=== PATIENT | female | born 1950 | race African-American/Black ===

== ENCOUNTER 2021-05-21 12:51 | Inpatient (IN) | payer MEDICARE, MEDICAID ==
[~2021-05-21] VITALS: Ht 165.1 cm; Wt 94.3 kg
[2021-05-21] MEDS ORDERED: DEXAMETHASONE 4MG/ML 1ML VIAL IV ONE (14:45)
[2021-05-21 15:06] LABS: HEMATOCRIT. 36.1 % (36.0-48.0); HEMOGLOBIN. 12.6 g/dL (12.0-16.0); MEAN CORPUSCULAR HEMOGLOBIN 31.3 pg (28.0-32.0); MEAN CORPUSCULAR VOLUME 89.4 fL (81.0-99.0); MEAN PLATELET VOLUME 11.8 fl (7.4-10.4); PLATELET 64 x1000/uL (130-400); RED BLOOD CELL COUNT 4.03 mill/uL (4.2-5.4); RED CELL DISTRIBUTION WIDTH 13.6 % (11.6-14.6)
[2021-05-21 15:28] LABS: BG BASE EXCESS -4.1 mmol/L (-2.0-2.0); BG CARBOXYHEMOGLOBIN 0.3 % (0.5-1.5); BG DEOXYHEMOGLOBIN 7.4 % (0.0-5.0); BG FRACTION INSPIRED OXYGEN 99.8; BG HCO3 ACT 19.7 mmol/L (22.0-26.0); BG METHEMOGLOBIN 0.2 % (0.0-1.5); BG OXYGEN SATURATION 92.6 % (92.0-98.5); BG OXYHEMOGLOBIN 92.1 % (94.0-97.0); BG PH 7.407 (7.350-7.450); BG PO2 69.4 mmHg (75.0-100.0); BG SAMPLE SITE RIGHT RADIAL; BG TOTAL HEMOGLOBIN 12.7 g/dL (12.0-18.0); BG VENT MODE MASK - NRB
[2021-05-21 16:21] LABS: PLATELET ESTIMATE DECREASED
[2021-05-21] MEDS ORDERED: PIPERACILLIN/TAZ 3.375G PREMIX 50 ML IV ONE (16:45)
[2021-05-21] MEDS ORDERED: VANCOMYCIN 1 G PREMIX 200 ML IV ONE (16:45)
[2021-05-21] MEDS ORDERED: POTASSIUM CHLORIDE INJ 40 MEQ in DEXT 5% WATER 250 ML IV ONE (18:45)
[2021-05-21] MEDS ORDERED: SODIUM CHLORIDE 0.9% 1,000 ML IV ONE (18:45)
[2021-05-22] VITALS (16 sets, daily range): BP systolic 120–214; BP diastolic 71–100
[2021-05-22] MEDS ORDERED: PIPERACILLIN/TAZOBACTAM 3.375 G in DEXTROSE 5% WATER 50 ML IV SCH (10:00)
[2021-05-22] MEDS ORDERED: INSULIN GLARGINE UD 100 UNITS/ML SYR SUBCUT SCH ×2 (10:00→11:00)
[2021-05-22] MEDS ORDERED: ACETAMINOPHEN 325MG TABLET PO PRN (10:00)
[2021-05-22] MEDS ORDERED: POTASSIUM CHLORIDE 20MEQ TABLET SR PO SCH (10:00)
[2021-05-22] MEDS: DEXAMETHASONE 10 MG/ML VIAL IV SCH (10:26)
[2021-05-22] MEDS: INSULIN LISPRO 100 UNITS/ML SUBCUT SCH ×3 (11:23→20:10)
[2021-05-22] MEDS: BLOOD SUGAR DIAGNOSTIC STRIP TEST SCH ×3 (11:45→20:05)
[2021-05-22] MEDS: ONDANSETRON HCL 4MG/2ML INJ IV PRN ×2 (11:47→18:33)
[2021-05-22] MEDS ORDERED: PIPERACILLIN/TAZOBACTAM 2.25G in DEXTROSE 5% WATER 50ML IV SCH (12:00)
[2021-05-22] MEDS: SODIUM CHLORIDE 0.45% 1,000 ML IV SCH (14:44)
[2021-05-22] MEDS ORDERED: HYDR25TA MT (17:30)
[2021-05-22] MEDS ORDERED: HYDR-4009 MT (17:32)
[2021-05-22] MEDS ORDERED: METO-385 MT (17:34)
[2021-05-22] MEDS ORDERED: LOSA100T32 MT (17:34)
[2021-05-22] MEDS ORDERED: OMEP20CA14 MT (17:35)
[2021-05-22] MEDS ORDERED: AMLO10TA80 MT (17:36)
[2021-05-22] MEDS: PIPERACILLIN/TAZOBACTAM 2.25G in DEXTROSE 5% WATER 50ML IV SCH ×2 (17:58→23:02)
[2021-05-22] MEDS: METOCLOPRAMIDE HCL 10MG/2ML VIAL IV SCH ×2 (17:58→23:02)
[2021-05-22] MEDS: CLONIDINE 0.1MG TABLET PO PRN (18:28)
[2021-05-22] MEDS: NICOTINE 14MG PATCH TD SCH (20:10)
[2021-05-22] MEDS: ALBUTEROL 6.7GM HFA INHALER ORI SCH (20:39)
[2021-05-23] VITALS (51 sets, daily range): BP systolic 88–198; BP diastolic 45–104
[2021-05-23] MEDS: ALBUTEROL 6.7GM HFA INHALER ORI SCH ×7 (04:20→21:37)
[2021-05-23 05:21] LABS: BASOPHILS % 0.3 % (0.0-2.0); HEMATOCRIT. 35.5 % (36.0-48.0); HEMOGLOBIN. 12.3 g/dL (12.0-16.0); LYMPHOCYTES % 8.7 % (20.0-50.0); MEAN CORPUSCULAR HEMOGLOBIN 30.5 pg (28.0-32.0); MEAN CORPUSCULAR VOLUME 87.9 fL (81.0-99.0); MEAN PLATELET VOLUME 9.7 fl (7.4-10.4); MONOCYTES % 5.7 % (2.0-8.0); NEUTROPHILS % 85.3 % (40.0-76.0); PLATELET 76 x1000/uL (130-400); RED BLOOD CELL COUNT 4.03 mill/uL (4.2-5.4); RED CELL DISTRIBUTION WIDTH 14.1 % (11.6-14.6)
[2021-05-23] MEDS: BLOOD SUGAR DIAGNOSTIC STRIP TEST SCH ×4 (06:14→20:57)
[2021-05-23] MEDS: PIPERACILLIN/TAZOBACTAM 2.25G in DEXTROSE 5% WATER 50ML IV SCH ×3 (06:14→19:04)
[2021-05-23] MEDS: METOCLOPRAMIDE HCL 10MG/2ML VIAL IV SCH ×3 (06:14→19:03)
[2021-05-23] MEDS: SODIUM CHLORIDE 0.45% 1,000 ML IV SCH (06:19)
[2021-05-23] MEDS: INSULIN LISPRO 100 UNITS/ML SUBCUT SCH ×4 (07:00→21:04)
[2021-05-23] MEDS: DEXAMETHASONE 10 MG/ML VIAL IV SCH (10:10)
[2021-05-23] MEDS: METHADONE HCL 10MG TABLET PO SCH (10:12)
[2021-05-23] MEDS: AMLODIPINE 10MG TABLET PO SCH (10:12)
[2021-05-23] MEDS: DEXTROSE 5% WATER 1,000 ML IV SCH (10:13)
[2021-05-23] MEDS: NICOTINE 14MG PATCH TD SCH (10:13)
[2021-05-23 16:39] LABS: HEMATOCRIT 34.2 % (36.0-48.0); HEMOGLOBIN 11.8 g/dL (12.0-16.0)
[2021-05-23] MEDS: PANTOPRAZOLE SODIUM 40 MG/VIAL IV SCH (19:03)
[2021-05-23] MEDS: CLONIDINE 0.1MG TABLET PO PRN (21:04)
[2021-05-24] VITALS (42 sets, daily range): BP systolic 136–190; BP diastolic 68–111
[2021-05-24] MEDS: METOCLOPRAMIDE HCL 10MG/2ML VIAL IV SCH ×4 (00:01→18:08)
[2021-05-24] MEDS: PIPERACILLIN/TAZOBACTAM 2.25G in DEXTROSE 5% WATER 50ML IV SCH ×4 (00:01→18:08)
[2021-05-24] MEDS: ALBUTEROL 6.7GM HFA INHALER ORI SCH (00:29)
[2021-05-24] MEDS: BLOOD SUGAR DIAGNOSTIC STRIP TEST SCH ×4 (05:41→21:09)
[2021-05-24 05:55] LABS: HEPATITIS B SURFACE ANTIGEN NEGATIVE
[2021-05-24] MEDS: DEXTROSE 5% WATER 1,000 ML IV SCH (06:06)
[2021-05-24] MEDS: INSULIN LISPRO 100 UNITS/ML SUBCUT SCH ×4 (06:06→21:13)
[2021-05-24 06:24] LABS: HEPATITIS A AB IGM NEGATIVE (NEGATIVE)
[2021-05-24] MEDS: PANTOPRAZOLE SODIUM 40 MG/VIAL IV SCH ×2 (08:58→18:08)
[2021-05-24] MEDS: DEXAMETHASONE 10 MG/ML VIAL IV SCH (08:58)
[2021-05-24] MEDS: METHADONE HCL 10MG TABLET PO SCH (08:58)
[2021-05-24] MEDS: AMLODIPINE 10MG TABLET PO SCH (08:58)
[2021-05-24] MEDS: NICOTINE 14MG PATCH TD SCH (08:59)
[2021-05-24 12:43] LABS: HEMATOCRIT. 38.4 % (36.0-48.0); HEMOGLOBIN. 12.8 g/dL (12.0-16.0); MEAN CORPUSCULAR HEMOGLOBIN 30.5 pg (28.0-32.0); MEAN CORPUSCULAR VOLUME 91.5 fL (81.0-99.0); PLATELET 77 x1000/uL (130-400); RED BLOOD CELL COUNT 4.19 mill/uL (4.2-5.4)
[2021-05-24 13:52] LABS: PLATELET ESTIMATE DECREASED
[2021-05-24 14:22] LABS: VITAMIN B12 SERUM 1595 pg/mL (211-911)
[2021-05-24] MEDS: IVERMECTIN 3 MG TABLET PO SCH (15:31)
[2021-05-24] MEDS: CLONIDINE 0.1MG TABLET PO PRN (22:12)
[2021-05-25] VITALS (82 sets, daily range): BP systolic 81–200; BP diastolic 52–112
[2021-05-25] MEDS: METOCLOPRAMIDE HCL 10MG/2ML VIAL IV SCH ×4 (00:04→17:29)
[2021-05-25] MEDS: PIPERACILLIN/TAZOBACTAM 2.25G in DEXTROSE 5% WATER 50ML IV SCH ×4 (00:04→17:29)
[2021-05-25] MEDS: ALBUTEROL 6.7GM HFA INHALER ORI SCH ×4 (01:01→19:00)
[2021-05-25 05:41] LABS: HEMATOCRIT. 39.4 % (36.0-48.0); HEMOGLOBIN. 13.4 g/dL (12.0-16.0); MEAN CORPUSCULAR HEMOGLOBIN 29.8 pg (28.0-32.0); MEAN CORPUSCULAR VOLUME 87.5 fL (81.0-99.0); MEAN PLATELET VOLUME 9.7 fl (7.4-10.4); PLATELET 90 x1000/uL (130-400); RED CELL DISTRIBUTION WIDTH 13.7 % (11.6-14.6)
[2021-05-25] MEDS: BLOOD SUGAR DIAGNOSTIC STRIP TEST SCH ×4 (05:48→21:02)
[2021-05-25] MEDS: INSULIN LISPRO 100 UNITS/ML SUBCUT SCH ×4 (05:48→21:02)
[2021-05-25 07:41] LABS: PLATELET ESTIMATE DECREASED
[2021-05-25] MEDS ORDERED: SODIUM CHLORIDE 0.9% 10ML VIAL ONE (08:06)
[2021-05-25] MEDS ORDERED: ETOMIDATE 2MG/ML 10ML VIAL IV ONE (08:06)
[2021-05-25] MEDS ORDERED: VECURONIUM BROMIDE 10 MG/VIAL IV ONE (08:06)
[2021-05-25] MEDS: FENTANYL CITRATE/PF 2,500 MCG in SODIUM CHLORIDE 0.9% 200 ML IV PRN (08:14)
[2021-05-25] MEDS: MIDAZOLAM HCL 100 MG in SODIUM CHLORIDE 0.9% 80 ML IV PRN ×2 (08:14→21:22)
[2021-05-25] MEDS ORDERED: DILTIAZEM HCL 5MG/ML 5ML VIAL IV NR (09:15)
[2021-05-25 09:44] LABS: BG BASE EXCESS -12.3 mmol/L (-2.0-2.0); BG CARBOXYHEMOGLOBIN 0.6 % (0.5-1.5); BG DEOXYHEMOGLOBIN 3.1 % (0.0-5.0); BG HCO3 ACT 18.3 mmol/L (22.0-26.0); BG METHEMOGLOBIN 0.5 % (0.0-1.5); BG OXYGEN SATURATION 96.9 % (92.0-98.5); BG OXYHEMOGLOBIN 95.8 % (94.0-97.0); BG PCO2 61.3 mmHg (35.0-45.0); BG PH 7.092 (7.350-7.450); BG PO2 120.6 mmHg (75.0-100.0); BG SAMPLE SITE RIGHT RADIAL; BG TOTAL HEMOGLOBIN 15.3 g/dL (12.0-18.0); BG VENT MODE VENT - AC
[2021-05-25] MEDS ORDERED: DILTIAZEM HCL 60MG TABLET PO SCH (09:45)
[2021-05-25] MEDS: NICOTINE 14MG PATCH TD SCH (09:56)
[2021-05-25] MEDS: PANTOPRAZOLE SODIUM 40 MG/VIAL IV SCH ×2 (09:56→16:00)
[2021-05-25] MEDS: DEXAMETHASONE 10 MG/ML VIAL IV SCH (09:56)
[2021-05-25] MEDS: METHADONE HCL 10MG TABLET PO SCH (10:56)
[2021-05-25] MEDS: DEXTROSE 5% WATER 1,000 ML IV SCH (10:56)
[2021-05-25] MEDS ORDERED: DILTIAZEM HCL 5MG/ML 5ML VIAL IV PRN (12:00)
[2021-05-25] MEDS ORDERED: POTASSIUM CHLORIDE INJ 40 MEQ in DEXT 5% WATER 500 ML IV SCH (12:00)
[2021-05-25] MEDS: IVERMECTIN 3 MG TABLET PO SCH (12:15)
[2021-05-25 12:31] LABS: BG BASE EXCESS -12.2 mmol/L (-2.0-2.0); BG CARBOXYHEMOGLOBIN 0.2 % (0.5-1.5); BG DEOXYHEMOGLOBIN 8.1 % (0.0-5.0); BG FRACTION INSPIRED OXYGEN 100; BG HCO3 ACT 16.5 mmol/L (22.0-26.0); BG METHEMOGLOBIN 0.3 % (0.0-1.5); BG OXYGEN SATURATION 91.9 % (92.0-98.5); BG OXYHEMOGLOBIN 91.4 % (94.0-97.0); BG PCO2 48.3 mmHg (35.0-45.0); BG PH 7.151 (7.350-7.450); BG PO2 77.4 mmHg (75.0-100.0); BG SAMPLE SITE LEFT RADIAL; BG TOTAL HEMOGLOBIN 14.1 g/dL (12.0-18.0); BG TOTAL RESPIRATORY RATE 31 b/min; BG VENT MODE VENT - AC
[2021-05-25] MEDS ORDERED: IPRATROPIUM BROMIDE (0.02%) 0.5MG/2.5ML NEB HHN PRN (12:45)
[2021-05-25] MEDS ORDERED: SODIUM BICARBONATE 8.4% 1 MEQ/ML 50ML SYR IV SCH (12:45)
[2021-05-25] MEDS ORDERED: SODIUM CHLORIDE 0.9% 500 ML IV ONE (14:00)
[2021-05-25] MEDS: IRON SUCROSE COMPLEX 100 MG/5 ML ML IV SCH (16:00)
[2021-05-25 16:11] LABS: BG BASE EXCESS -6.1 mmol/L (-2.0-2.0); BG CARBOXYHEMOGLOBIN 0.2 % (0.5-1.5); BG DEOXYHEMOGLOBIN 3.5 % (0.0-5.0); BG HCO3 ACT 20.1 mmol/L (22.0-26.0); BG METHEMOGLOBIN 0.1 % (0.0-1.5); BG OXYGEN SATURATION 96.5 % (92.0-98.5); BG OXYHEMOGLOBIN 96.2 % (94.0-97.0); BG PCO2 42.5 mmHg (35.0-45.0); BG PH 7.293 (7.350-7.450); BG PO2 95.2 mmHg (75.0-100.0); BG SAMPLE SITE RIGHT BRACHIAL; BG TOTAL HEMOGLOBIN 13.8 g/dL (12.0-18.0); BG VENT MODE VENT - AC
[2021-05-25] MEDS: IPRATROPIUM BROMIDE (0.02%) 0.5MG/2.5ML NEB HHN SCH ×2 (16:35→21:15)
[2021-05-25] MEDS: DILTIAZEM HCL 30MG TABLET PO SCH (17:29)
[2021-05-26] VITALS (92 sets, daily range): BP systolic 100–152; BP diastolic 51–95
[2021-05-26] MEDS: METOCLOPRAMIDE HCL 10MG/2ML VIAL IV SCH ×4 (00:12→17:00)
[2021-05-26] MEDS: PIPERACILLIN/TAZOBACTAM 2.25G in DEXTROSE 5% WATER 50ML IV SCH ×2 (00:12→05:13)
[2021-05-26] MEDS: IPRATROPIUM BROMIDE (0.02%) 0.5MG/2.5ML NEB HHN SCH ×6 (00:51→21:16)
[2021-05-26] MEDS: FENTANYL CITRATE/PF 2,500 MCG in SODIUM CHLORIDE 0.9% 200 ML IV PRN ×2 (01:15→13:54)
[2021-05-26] MEDS: DILTIAZEM HCL 30MG TABLET PO SCH ×4 (05:13→17:00)
[2021-05-26 05:46] LABS: BASOPHILS % 0.1 % (0.0-2.0); HEMATOCRIT. 33.6 % (36.0-48.0); HEMOGLOBIN. 11.6 g/dL (12.0-16.0); LYMPHOCYTES % 7.1 % (20.0-50.0); MEAN CORPUSCULAR VOLUME 87.3 fL (81.0-99.0); MEAN PLATELET VOLUME 9.9 fl (7.4-10.4); MONOCYTES % 3.9 % (2.0-8.0); NEUTROPHILS % 88.9 % (40.0-76.0); PLATELET 68 x1000/uL (130-400); RED BLOOD CELL COUNT 3.84 mill/uL (4.2-5.4); RED CELL DISTRIBUTION WIDTH 13.7 % (11.6-14.6)
[2021-05-26] MEDS: INSULIN LISPRO 100 UNITS/ML SUBCUT SCH ×4 (05:46→21:03)
[2021-05-26] MEDS: BLOOD SUGAR DIAGNOSTIC STRIP TEST SCH ×4 (05:46→20:59)
[2021-05-26] MEDS: IRON SUCROSE COMPLEX 100 MG/5 ML ML IV SCH (10:15)
[2021-05-26] MEDS: METHADONE HCL 10MG TABLET PO SCH (10:15)
[2021-05-26] MEDS: NICOTINE 14MG PATCH TD SCH (10:15)
[2021-05-26] MEDS: DEXAMETHASONE 10 MG/ML VIAL IV SCH (10:15)
[2021-05-26] MEDS: PANTOPRAZOLE SODIUM 40 MG/VIAL IV SCH ×2 (10:15→16:59)
[2021-05-26] MEDS: SODIUM CHLORIDE 0.45% 1,000 ML IV SCH (10:17)
[2021-05-26 10:29] LABS: BG BASE EXCESS -4.2 mmol/L (-2.0-2.0); BG DEOXYHEMOGLOBIN 1.3 % (0.0-5.0); BG FRACTION INSPIRED OXYGEN 100; BG HCO3 ACT 21.9 mmol/L (22.0-26.0); BG METHEMOGLOBIN 0.2 % (0.0-1.5); BG OXYGEN SATURATION 98.7 % (92.0-98.5); BG OXYHEMOGLOBIN 98.5 % (94.0-97.0); BG PCO2 43.9 mmHg (35.0-45.0); BG PH 7.315 (7.350-7.450); BG PO2 168.5 mmHg (75.0-100.0); BG SAMPLE SITE LEFT RADIAL; BG TOTAL HEMOGLOBIN 11.9 g/dL (12.0-18.0); BG TOTAL RESPIRATORY RATE 30 b/min; BG VENT MODE VENT - AC
[2021-05-26] MEDS: MIDAZOLAM HCL 100 MG in SODIUM CHLORIDE 0.9% 80 ML IV PRN ×2 (10:41→22:21)
[2021-05-26] MEDS: CEFEPIME 1,000 MG in DEXTROSE 5% WATER 50 ML IV SCH (11:47)
[2021-05-26] MEDS: IVERMECTIN 3 MG TABLET PO SCH (12:41)
[2021-05-27] VITALS (96 sets, daily range): BP systolic 97–174; BP diastolic 57–99
[2021-05-27] MEDS: FENTANYL CITRATE/PF 2,500 MCG in SODIUM CHLORIDE 0.9% 200 ML IV PRN ×4 (00:28→23:57)
[2021-05-27] MEDS: DILTIAZEM HCL 30MG TABLET PO SCH ×4 (00:28→17:03)
[2021-05-27] MEDS: METOCLOPRAMIDE HCL 10MG/2ML VIAL IV SCH ×4 (00:29→17:03)
[2021-05-27] MEDS: IPRATROPIUM BROMIDE (0.02%) 0.5MG/2.5ML NEB HHN SCH ×6 (01:07→20:54)
[2021-05-27] MEDS: BLOOD SUGAR DIAGNOSTIC STRIP TEST SCH ×4 (06:09→21:07)
[2021-05-27] MEDS: SODIUM CHLORIDE 0.45% 1,000 ML IV SCH (06:27)
[2021-05-27] MEDS: MIDAZOLAM HCL 100 MG in SODIUM CHLORIDE 0.9% 80 ML IV PRN ×3 (06:28→21:33)
[2021-05-27] MEDS: INSULIN LISPRO 100 UNITS/ML SUBCUT SCH ×4 (06:28→21:10)
[2021-05-27 07:28] LABS: HEMATOCRIT. 31.4 % (36.0-48.0); HEMOGLOBIN. 10.7 g/dL (12.0-16.0); MEAN CORPUSCULAR HEMOGLOBIN 29.6 pg (28.0-32.0); MEAN CORPUSCULAR VOLUME 87.3 fL (81.0-99.0); MEAN PLATELET VOLUME 10.5 fl (7.4-10.4); PLATELET 64 x1000/uL (130-400); RED CELL DISTRIBUTION WIDTH 13.8 % (11.6-14.6)
[2021-05-27] MEDS: IRON SUCROSE COMPLEX 100 MG/5 ML ML IV SCH (08:29)
[2021-05-27] MEDS: DEXAMETHASONE 10 MG/ML VIAL IV SCH (08:29)
[2021-05-27] MEDS: PANTOPRAZOLE SODIUM 40 MG/VIAL IV SCH ×2 (08:30→17:02)
[2021-05-27] MEDS: METHADONE HCL 10MG TABLET PO SCH (08:30)
[2021-05-27] MEDS: NICOTINE 14MG PATCH TD SCH (08:31)
[2021-05-27] MEDS ORDERED: LACTULOSE 20G/30ML UDC PO NR (09:30)
[2021-05-27 10:06] LABS: BG CARBOXYHEMOGLOBIN 0.2 % (0.5-1.5); BG DEOXYHEMOGLOBIN 7.8 % (0.0-5.0); BG FRACTION INSPIRED OXYGEN 60; BG HCO3 ACT 21.7 mmol/L (22.0-26.0); BG METHEMOGLOBIN 0.2 % (0.0-1.5); BG OXYGEN SATURATION 92.2 % (92.0-98.5); BG OXYHEMOGLOBIN 91.8 % (94.0-97.0); BG PCO2 47.2 mmHg (35.0-45.0); BG PH 7.281 (7.350-7.450); BG PO2 69.2 mmHg (75.0-100.0); BG SAMPLE SITE RIGHT BRACHIAL; BG TOTAL HEMOGLOBIN 11.8 g/dL (12.0-18.0); BG VENT MODE VENT - AC
[2021-05-27] MEDS: IVERMECTIN 3 MG TABLET PO SCH (11:33)
[2021-05-27] MEDS: PROPOFOL 10MG/ML 100ML 100 ML IV PRN ×2 (11:38→21:55)
[2021-05-27] MEDS: CEFEPIME 1,000 MG in DEXTROSE 5% WATER 50 ML IV SCH (12:30)
[2021-05-27 13:42] LABS: PLATELET ESTIMATE DECREASED
[2021-05-27 23:18] LABS: INR 1.4; PROTHROMBIN TIME 14.2 sec (9.6-11.0)
[2021-05-28] VITALS (97 sets, daily range): BP systolic 77–163; BP diastolic 33–86
[2021-05-28] MEDS: DILTIAZEM HCL 30MG TABLET PO SCH ×4 (00:37→17:02)
[2021-05-28] MEDS: METOCLOPRAMIDE HCL 10MG/2ML VIAL IV SCH ×4 (00:37→16:45)
[2021-05-28] MEDS: IPRATROPIUM BROMIDE (0.02%) 0.5MG/2.5ML NEB HHN SCH ×6 (01:18→20:10)
[2021-05-28] MEDS: SODIUM CHLORIDE 0.45% 1,000 ML IV SCH ×2 (01:59→22:33)
[2021-05-28] MEDS: PROPOFOL 10MG/ML 100ML 100 ML IV PRN ×4 (02:44→22:33)
[2021-05-28] MEDS: PHENYLEPHRINE 100 MG in DEXT 5% WATER 240 ML IV PRN (03:58)
[2021-05-28] MEDS: MIDAZOLAM HCL 100 MG in SODIUM CHLORIDE 0.9% 80 ML IV PRN ×3 (04:59→21:01)
[2021-05-28] MEDS: INSULIN LISPRO 100 UNITS/ML SUBCUT SCH ×4 (06:09→21:00)
[2021-05-28] MEDS: BLOOD SUGAR DIAGNOSTIC STRIP TEST SCH ×4 (06:09→21:02)
[2021-05-28 08:47] LABS: BG BASE EXCESS -11.8 mmol/L (-2.0-2.0); BG CARBOXYHEMOGLOBIN 0.5 % (0.5-1.5); BG DEOXYHEMOGLOBIN 8.8 % (0.0-5.0); BG HCO3 ACT 16.7 mmol/L (22.0-26.0); BG METHEMOGLOBIN 0.3 % (0.0-1.5); BG OXYGEN SATURATION 91.1 % (92.0-98.5); BG OXYHEMOGLOBIN 90.4 % (94.0-97.0); BG PCO2 47.9 mmHg (35.0-45.0); BG PH 7.161 (7.350-7.450); BG PO2 75.1 mmHg (75.0-100.0); BG SAMPLE SITE LEFT RADIAL; BG TOTAL HEMOGLOBIN 13.8 g/dL (12.0-18.0); BG VENT MODE VENT - AC
[2021-05-28] MEDS: DOCUSATE SODIUM SUGAR FREE 100MG/10ML UDC NG SCH (09:21)
[2021-05-28] MEDS: PANTOPRAZOLE SODIUM 40 MG/VIAL IV SCH ×2 (09:21→16:45)
[2021-05-28] MEDS: DEXAMETHASONE 10 MG/ML VIAL IV SCH (09:21)
[2021-05-28] MEDS: METHADONE HCL 10MG TABLET PO SCH (09:24)
[2021-05-28] MEDS: NICOTINE 14MG PATCH TD SCH (09:25)
[2021-05-28] MEDS: FENTANYL CITRATE/PF 2,500 MCG in SODIUM CHLORIDE 0.9% 200 ML IV PRN (09:36)
[2021-05-28] MEDS ORDERED: SODIUM BICARBONATE 8.4% 1 MEQ/ML 50ML SYR IV SCH (09:45)
[2021-05-28 11:18] LABS: HEMATOCRIT. 36.6 % (36.0-48.0); MEAN CORPUSCULAR HEMOGLOBIN 29.6 pg (28.0-32.0); MEAN CORPUSCULAR VOLUME 90.2 fL (81.0-99.0); MEAN PLATELET VOLUME 10.1 fl (7.4-10.4); RED BLOOD CELL COUNT 4.05 mill/uL (4.2-5.4); RED CELL DISTRIBUTION WIDTH 14.3 % (11.6-14.6)
[2021-05-28 12:01] LABS: PLATELET 152 x1000/uL (130-400)
[2021-05-28] MEDS: CEFEPIME 1,000 MG in DEXTROSE 5% WATER 50 ML IV SCH (12:30)
[2021-05-28] MEDS: IVERMECTIN 3 MG TABLET PO SCH (12:32)
[2021-05-28 15:17] LABS: NUCLEATED RED BLOOD CELLS 3 /100 WBC; PLATELET ESTIMATE NORMAL
[2021-05-29] VITALS (90 sets, daily range): BP systolic 88–116; BP diastolic 50–62
[2021-05-29] MEDS: METOCLOPRAMIDE HCL 10MG/2ML VIAL IV SCH ×4 (00:10→18:20)
[2021-05-29] MEDS: IPRATROPIUM BROMIDE (0.02%) 0.5MG/2.5ML NEB HHN SCH ×5 (00:12→20:51)
[2021-05-29] MEDS: DILTIAZEM HCL 30MG TABLET PO SCH ×2 (00:17→06:35)
[2021-05-29] MEDS: PROPOFOL 10MG/ML 100ML 100 ML IV PRN ×4 (03:36→21:43)
[2021-05-29] MEDS: MIDAZOLAM HCL 100 MG in SODIUM CHLORIDE 0.9% 80 ML IV PRN ×3 (03:37→15:17)
[2021-05-29] MEDS: FENTANYL CITRATE/PF 2,500 MCG in SODIUM CHLORIDE 0.9% 200 ML IV PRN ×2 (03:40→15:17)
[2021-05-29 04:07] LABS: OVA & PARASITE EXAM Final report (.)
[2021-05-29 04:07] LABS: OVA & PARASITE EXAM Final report (.)
[2021-05-29 05:08] LABS: HEMATOCRIT. 35.4 % (36.0-48.0); HEMOGLOBIN. 11.6 g/dL (12.0-16.0); MEAN CORPUSCULAR HEMOGLOBIN 29.3 pg (28.0-32.0); MEAN CORPUSCULAR VOLUME 89.3 fL (81.0-99.0); MEAN PLATELET VOLUME 9.5 fl (7.4-10.4); RED BLOOD CELL COUNT 3.96 mill/uL (4.2-5.4); RED CELL DISTRIBUTION WIDTH 14.3 % (11.6-14.6)
[2021-05-29] MEDS: INSULIN LISPRO 100 UNITS/ML SUBCUT SCH ×4 (06:30→21:00)
[2021-05-29] MEDS: BLOOD SUGAR DIAGNOSTIC STRIP TEST SCH ×4 (06:30→21:43)
[2021-05-29 06:55] LABS: NUCLEATED RED BLOOD CELLS 2 /100 WBC; PLATELET ESTIMATE NORMAL
[2021-05-29 07:00] LABS: PLATELET 139 x1000/uL (130-400)
[2021-05-29] MEDS: PHENYLEPHRINE 100 MG in DEXT 5% WATER 240 ML IV PRN (07:37)
[2021-05-29] MEDS: NICOTINE 14MG PATCH TD SCH (09:34)
[2021-05-29] MEDS: DOCUSATE SODIUM SUGAR FREE 100MG/10ML UDC NG SCH (09:34)
[2021-05-29] MEDS: DEXAMETHASONE 10 MG/ML VIAL IV SCH (09:35)
[2021-05-29] MEDS: PANTOPRAZOLE SODIUM 40 MG/VIAL IV SCH ×2 (09:35→18:20)
[2021-05-29 10:33] LABS: BG BASE EXCESS -13.4 mmol/L (-2.0-2.0); BG CARBOXYHEMOGLOBIN 0.1 % (0.5-1.5); BG DEOXYHEMOGLOBIN 2.1 % (0.0-5.0); BG FRACTION INSPIRED OXYGEN 80; BG HCO3 ACT 13.2 mmol/L (22.0-26.0); BG METHEMOGLOBIN 0.4 % (0.0-1.5); BG OXYGEN SATURATION 97.9 % (92.0-98.5); BG OXYHEMOGLOBIN 97.4 % (94.0-97.0); BG PCO2 33.5 mmHg (35.0-45.0); BG PH 7.215 (7.350-7.450); BG PO2 129.1 mmHg (75.0-100.0); BG SAMPLE SITE RIGHT RADIAL; BG TOTAL HEMOGLOBIN 12.5 g/dL (12.0-18.0); BG TOTAL RESPIRATORY RATE 40 b/min; BG VENT MODE VENT - AC
[2021-05-29] MEDS ORDERED: SODIUM BICARBONATE 8.4% 1 MEQ/ML 50ML SYR IV NR (11:15)
[2021-05-29] MEDS: DEXTROSE 50% WATER 50ML SYRINGE IV PRN (11:50)
[2021-05-29] MEDS: CEFEPIME 1,000 MG in DEXTROSE 5% WATER 50 ML IV SCH (11:50)
[2021-05-29] MEDS ORDERED: BISACODYL 10MG SUPP PR NR (13:00)
[2021-05-29] MEDS ORDERED: DEXTROSE 5% WATER 1,000 ML IV SCH (15:00)
[2021-05-30] VITALS (40 sets, daily range): BP systolic 48–205; BP diastolic 15–104
[2021-05-30] MEDS: MIDAZOLAM HCL 100 MG in SODIUM CHLORIDE 0.9% 80 ML IV PRN ×2 (00:01→08:16)
[2021-05-30] MEDS: METOCLOPRAMIDE HCL 10MG/2ML VIAL IV SCH ×2 (00:01→06:12)
[2021-05-30] MEDS: PROPOFOL 10MG/ML 100ML 100 ML IV PRN ×2 (00:37→06:15)
[2021-05-30] MEDS: IPRATROPIUM BROMIDE (0.02%) 0.5MG/2.5ML NEB HHN SCH ×3 (00:53→08:50)
[2021-05-30] MEDS ORDERED: NOREPINEPHRINE 8 MG in DEXT 5% WATER 250 ML IV PRN (04:00)
[2021-05-30 05:04] LABS: HEMATOCRIT. 37.9 % (36.0-48.0); HEMOGLOBIN. 12.6 g/dL (12.0-16.0); MEAN CORPUSCULAR HEMOGLOBIN 31.4 pg (28.0-32.0); MEAN CORPUSCULAR VOLUME 94.7 fL (81.0-99.0); MEAN PLATELET VOLUME 9.7 fl (7.4-10.4); PLATELET 141 x1000/uL (130-400); RED CELL DISTRIBUTION WIDTH 15.5 % (11.6-14.6)
[2021-05-30] MEDS: DEXTROSE 50% WATER 50ML SYRINGE IV PRN (06:12)
[2021-05-30] MEDS: BLOOD SUGAR DIAGNOSTIC STRIP TEST SCH (06:17)
[2021-05-30] MEDS: INSULIN LISPRO 100 UNITS/ML SUBCUT SCH (06:17)
[2021-05-30] MEDS: FENTANYL CITRATE/PF 2,500 MCG in SODIUM CHLORIDE 0.9% 200 ML IV PRN (06:17)
[2021-05-30] MEDS ORDERED: LACTULOSE 20G/30ML UDC PO SCH (06:45)
[2021-05-30 06:51] LABS: NUCLEATED RED BLOOD CELLS 12 /100 WBC; PLATELET ESTIMATE NORMAL
[2021-05-30] MEDS ORDERED: DEXT 5%/0.45% NACL 1000ML 1,000 ML IV SCH (07:30)
[2021-05-30] MEDS ORDERED: SODIUM BICARBONATE 8.4% 1 MEQ/ML 50ML SYR IV NR (08:15)
[2021-05-30] MEDS ORDERED: DEXTROSE 50% WATER 50ML SYRINGE IV NR (08:15)
[2021-05-30] MEDS ORDERED: INSULIN REGULAR (HUMULIN R) 300UNITS/3ML VIAL IV NR (08:15)
[2021-05-30] MEDS ORDERED: CALCIUM GLUCONATE 1,000 MG in DEXT 5% WATER 90 ML IV ONE (08:15)
[2021-05-30] MEDS: PHENYLEPHRINE 100 MG in DEXT 5% WATER 240 ML IV PRN (08:38)
[2021-05-30] MEDS: DEXAMETHASONE 10 MG/ML VIAL IV SCH (09:55)
[2021-05-30] MEDS: PANTOPRAZOLE SODIUM 40 MG/VIAL IV SCH (09:55)
[2021-05-30] MEDS: NICOTINE 14MG PATCH TD SCH (09:55)
[2021-05-30] MEDS: DOCUSATE SODIUM SUGAR FREE 100MG/10ML UDC NG SCH (09:55)
[2021-05-30 09:57] LABS: BG BASE EXCESS -31.2 mmol/L (-2.0-2.0); BG CARBOXYHEMOGLOBIN 0.2 % (0.5-1.5); BG DEOXYHEMOGLOBIN 2.9 % (0.0-5.0); BG FRACTION INSPIRED OXYGEN 100; BG HCO3 ACT 3.8 mmol/L (22.0-26.0); BG OXYGEN SATURATION 97.1 % (92.0-98.5); BG OXYHEMOGLOBIN 96.9 % (94.0-97.0); BG PCO2 30.4 mmHg (35.0-45.0); BG PH 6.718 (7.350-7.450); BG PO2 146.1 mmHg (75.0-100.0); BG SAMPLE SITE LEFT RADIAL; BG TOTAL HEMOGLOBIN 10.9 g/dL (12.0-18.0); BG VENT MODE VENT - AC
[2021-05-30] MEDS ORDERED: CALCIUM GLUCONATE 1GM PREMIX 50 ML IV NR (10:00)
[2021-05-30] MEDS ORDERED: NOREPINEPHRINE 32 MG in DEXT 5% WATER 218 ML IV PRN (10:30)
[2021-05-30] MEDS ORDERED: SODIUM BICARBONATE 150 MEQ in DEXTROSE 5% WATER 1,000 ML IV SCH (10:30)
== END 2021-05-30 11:31 | DRG 720 ==
LOC: ER 12:51 → EDBEDREQTM 17:43 → EDBEDREQ 17:43 → EDBEDREQSVC 17:43 → MICUSO 20:33
PROVIDERS: ADMIT Internal Medicine; ATTEND Internal Medicine
PROC: 5A09457 Assistance with Respiratory Ventilation, 24-96 Consecutive Hours, Continuous Positive Airway Pressure (ICD-10-PCS; 2021-05-21)
PROC: 5A1955Z Respiratory Ventilation, Greater than 96 Consecutive Hours (ICD-10-PCS; principal; 2021-05-25)
PROC: 0BH17EZ Insertion of Endotracheal Airway into Trachea, Via Natural or Artificial Opening (ICD-10-PCS; 2021-05-25)
PROC: 06HY33Z Insertion of Infusion Device into Lower Vein, Percutaneous Approach (ICD-10-PCS; 2021-05-25)
PROC: 02HV33Z Insertion of Infusion Device into Superior Vena Cava, Percutaneous Approach (ICD-10-PCS; 2021-05-27)
PROC: B548ZZA Ultrasonography of Superior Vena Cava, Guidance (ICD-10-PCS; 2021-05-27)
PROC: 5A1D70Z Performance of Urinary Filtration, Intermittent, Less than 6 Hours Per Day (ICD-10-PCS; 2021-05-28)
PROC: 5A1D70Z Performance of Urinary Filtration, Intermittent, Less than 6 Hours Per Day (ICD-10-PCS; 2021-05-29)
PROC: 5A1D70Z Performance of Urinary Filtration, Intermittent, Less than 6 Hours Per Day (ICD-10-PCS; 2021-05-30)
DX: A41.89 Other specified sepsis (principal); J96.01 Acute respiratory failure with hypoxia; N17.0 Acute kidney failure with tubular necrosis; K72.00 Acute and subacute hepatic failure without coma; J12.82 Pneumonia due to coronavirus disease 2019; E43 Unspecified severe protein-calorie malnutrition; K57.31 Diverticulosis of large intestine without perforation or abscess with bleeding; D69.6 Thrombocytopenia, unspecified; Z66 Do not resuscitate; G93.41 Metabolic encephalopathy; U07.1 COVID-19; I12.9 Hypertensive chronic kidney disease with stage 1 through stage 4 chronic kidney disease, or unspecified chronic kidney disease; E87.8 Other disorders of electrolyte and fluid balance, not elsewhere classified; J44.0 Chronic obstructive pulmonary disease with (acute) lower respiratory infection; E87.1 Hypo-osmolality and hyponatremia; E87.6 Hypokalemia; K64.8 Other hemorrhoids; K64.9 Unspecified hemorrhoids; E87.2 Acidosis; E87.5 Hyperkalemia; F17.210 Nicotine dependence, cigarettes, uncomplicated; K74.60 Unspecified cirrhosis of liver; N18.9 Chronic kidney disease, unspecified; R65.21 Severe sepsis with septic shock; E11.22 Type 2 diabetes mellitus with diabetic chronic kidney disease; K80.20 Calculus of gallbladder without cholecystitis without obstruction; R65.20 Severe sepsis without septic shock; B19.20 Unspecified viral hepatitis C without hepatic coma; F11.20 Opioid dependence, uncomplicated; Z68.34 Body mass index [BMI] 34.0-34.9, adult; E11.649 Type 2 diabetes mellitus with hypoglycemia without coma; D89.839 Cytokine release syndrome, grade unspecified
CPT/HCPCS: 31500; 36415; 36600; 71045; 74176; 76700; 76937; 78278; 80048; 80076; 82247; 82248; 82270; 82375; 82607; 82728; 82746; 82805; 82962; 83036; 83540; 83550; 83605; 83615; 84145; 84450; 84478; 84484; 85014; 85018; 85025; 85044; 85379; 86140; 86705; 86709; 86803; 87015; 87045; 87177; 87209; 87340; 87426; 87427; 87449; 87493; 89055; 93005; 93970; 94002; 94003; 94640; 94660; 99291; A6261; A9560; C1752; C9113; J0610; J0692; J1100; J1815; J2250; J2370; J2405; J2543; J2704; J2765; J3010; J3370; J3480; J3490; J7030; J7040; J7042; J7050; J7060; J7070; U0003; U0005; A4315